=== PATIENT | female | born 1985 | race Two or more races ===

== ENCOUNTER 2025-03-11 09:57 | Emergency (ER) | payer MEDICAID ==
[~2025-03-11] VITALS: Ht 160 cm; Wt 72.8 kg
[2025-03-11 11:28] VITALS: BP 131/79; PULSE 113; RESP 16; TEMP 98.7; O2SAT 98
[2025-03-11] MEDS ORDERED: TETANUS-DIPTH-ACEL PERTUSSIS 0.5ML SYR Tdap IM ONE (12:15)
[2025-03-11] MEDS ORDERED: KETOROLAC TROMETH 30 MG/ML 1ML VIAL IM ONE (12:15)
--- NOTE | 2025-03-11 13:26 | DVH ---
Clinical History: calf pain Comparison: None Technique: Duplex Doppler evaluation of the deep venous system of the left lower extremity from the common femo ral vein to the popliteal vein including color Doppler and spectral/pulsed waveform analysis was perf ormed. Findings: The common femoral vein demonstrates appropriate compressibility and waveform variability . There is compressibility/patency of the great saphenous vein at the proximal thigh . The femoral vein demonstrates appropriate compressibility and waveform variability . The deep femoral vein demonstrates appropriate compressibility and waveform variability . The popliteal vein demonstrates appropriate compressibility and waveform variability . There is normal compressibility at the tibioperoneal trunk. Impression: No left deep venous thrombosis. If clinical concern/symptoms persist or worsen, short-interval follow-up study is suggested.
--- NOTE | 2025-03-11 13:41 | ED.PDOC ---
Musculoskeletal HPI Comments 40 Y F presents with a chief complaint of nonradiating left calf pain x1 day. Onset occurred yesterday after running. Reports she felt a sudden pop and pain has been persistent since Worsens with ambulation alleviated at rest. 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: No Pertinent WIRE TWISTING MACHINE OPERATOR History Family History Family History: Reviewed,noncontributory to illness Social History Smoker: Non-Smoker Alcohol: Denies ETOH Use Drugs: Denies Drug Use All Other Systems: Reviewed and Negative (PER HPI) Physical Exam General Appearance: No Apparent Distress, Normal HEENT: Normal ENT Inspection, Pharynx Normal, TMs Normal Neck: Full Range of Motion, Non-Tender, Normal, Normal Inspection Respiratory: Chest Non-Tender, Lungs Clear, No Accessory Muscle Use, No Respiratory Distress, Normal Breath Sounds Cardiovascular: No Edema, No JVD, No Murmur, No Gallop, Normal Peripheral Pulses, Regular Rate/Rhythm Breast Exam: Deferred Gastrointestinal: No Organomegaly, Non Tender, No Pulsatile Mass, Normal Bowel Sounds, Soft Genitalia: Deferred Pelvic: Deferred Rectal: Deferred Extremities: No calf tenderness, Normal capillary refill, Normal inspection, Normal range of motion, Non-tender, No pedal edema Musculoskeletal : Apperance: Normal Neurologic: Alert, dining room host/hostess II-XII nml as Tested, No Motor Deficits, Normal Affect, Normal Mood, No Sensory Deficits Cerebellar Function: Normal Reflexes: Normal Skin: Dry, Normal Color, Warm Lymphatic: No Adenopathy Was a procedure done? Was a procedure done?: No Differential Diagnosis EXT Differential Diagnosis: Deep Vein Thrombosis, Fracture, Sprain X-Ray, Labs, Meds, VS Vital Signs Date Time Temp Pulse Resp B/P (MAP) Pulse Ox O2 Delivery O2 Flow Rate FiO2 03/11/25 11:28 98.7 113 16 131/79 (96) 98 98.7 03/11/25 11:28 113 16 98 Room Air 03/11/25 10:30 98.7 113 16 131/79 (96) 98 98.7 [facility] [id number] [facility] [id number] Ph: [phone] DIAGNOSTIC IMAGING Diagnostic Imaging Report : [id number] Signed PATIENT: ELZBIETA POSEY ACCT: [id number] UNIT: [id number] : 1985 LOC: ER ROOM / BED: / AGE / SEX: 40 / F ADM STATUS: REG ER SERVICE [id number] ORDERING PHYSICIAN: CARRIE MOLINA NP PROCEDURE(s): LLDVT - LT Lower DVT REASON: calf pain ORDER NUMBER(s): [id number], ACCESSION NUMBER(s): [id number] Clinical History: calf pain Comparison: None Technique: Duplex Doppler evaluation of the deep venous system of the left lower extremity from the common femoral vein to the popliteal vein including color Doppler and spectral/pulsed waveform analysis was performed. Findings: The common femoral vein demonstrates appropriate compressibility and waveform variability . There is compressibility/patency of the great saphenous vein at the proximal thigh . The femoral vein demonstrates appropriate compressibility and waveform variabili ty . The deep femoral vein demonstrates appropriate compressibility and waveform variability . The popliteal vein demonstrates appropriate compressibility and waveform variability . There is normal compressibility at the tibioperoneal trunk. Impression: No left deep venous thrombosis. If clinical concern/symptoms persist or worsen, short-interval follow-up study is suggested. ATED BY: WES DUARTE MD DICTATED DATE/TIME: 03/11/251322 SIGNED BY: WES DUARTE MD SIGNED DATE/TIME: 03/11/251322 CC: X-Ray, Labs, Meds, VS Comment The patient presents with signs and symptoms concerning for deep venous thrombosis. The differential diagnosis includes but is not limited to: DVT, thrombophlebitis, trauma, venous stasis, peripheral edema, cellulitis. Work up negative for DVT. The patient was overall stable while in the ED. They had normal oxygenation on room air and did not require any supplemental oxygen. Heart rate has remained stable while in the ED. Nontoxic appearing. No lymphangitic spread visible. No fluid pockets or fluctuance concerning for abscess. Low concern for cellulitis or osteomyelitis. No evidence of phlegmasia cerulea or alba dolens. Focal and unilateral nature not consistent with heart failure. On reevaluation, patient had symptomatic improvement. Patient is stable for discharge at this time. External notes reviewed. Test results and diagnostic imaging interpreted. All diagnostic findings, discharge care, education and instructions provided Follow-up with PCP in 2 to 3 days Patient verbalized understanding and agreed to treatment plan Vital signs stable, afebrile, no acute distress noted Patient ambulatory with strong steady gait Advised to return precautions for any new or worsening symptoms, return to ER immediately for re-evaluation Patient is aware that the purpose of this visit was for an acute medical emergency requiring emergent stabilization. Chronic conditions, including malignancies have not been ruled out. Patient is instructed to follow up with PCP as directed and discharge instructions for continued care and workup. If unable to arrange follow-up, patient is to return to the emergency department for reassessment. Patient (parent or legal guardian if applicable) was given verbal and written discharge instructions and acknowledges understanding. Time of 1ST Reevaluation: 13:35 Reevaluation 1ST: Improved Patient Education/Counseling: Diagnosis, Treatment Family Education/Counseling: Diagnosis, Treatment Departure 1 Departure Time of Disposition: 13:40 Impression: Primary Impression: Pain of left calf Disposition: 01 HOME / SELF CARE / HOMELESS Condition: Fair Discharged With: Self Critical Care Note Critical Care Time?: No Stability Stability form required: No Heart Score Heart Score: Heart Score Response (Comments) Value History N/A 0 EKG N/A 0 Age N/A 0 Risk Factors N/A 0 Troponin N/A 0 Total 0 CARRIE MOLINA NP March 11, 2025 13:41
== END 2025-03-11 13:41 | disposition home or self-care (01) ==
LOC: ER 09:57
DX: M79.662 Pain in left lower leg (principal)
CPT/HCPCS: 90715; 93971; J1885